=== PATIENT | female | born 1995 | race Caucasian/White ===

== ENCOUNTER 2017-04-29 13:15 | Emergency (ER) | payer BC ==
--- NOTE | 2017-04-29 14:14 | UC ---
Throat Pain/Nasal Blaise HPI - HPI Summary HPI Summary: Acute sinus pain, pressure, chills, and malaise starting 1-2 days ago. Pt has chronic allergies, states she gets sinus infections "all the time" but rarely takes abx for them. Thinks it has been years since her last course of abx; came in because she is feeling so bad this time. Has apt with pharmaceutical engineer on Saturday, has never had luck with treating her allergies in the past. Called her PCP but couldn't get an appointment for a week or more. Had sinus surgery x 3 while in the several years ago. Denies measured fever, trouble breathing, or facial swelling. - History of Current Complaint Chief Complaint: UCRespiratory Stated Complaint: SINUS ISSUE FEVER Time Seen by Provider: 04/29/17 13:46 Hx Obtained From: Patient Hx Last Menstrual Period: DEPO ?: No Onset/Duration: Gradual Onset, Lasting Days Cough: Nonproductive - throat-clearing Associated Signs & Symptoms: Positive: Sinus Discomfort, Nasal Discharge - Allergies/Home Medications Allergies/Adverse Reactions: Allergies Allergy/AdvReac Type Severity Reaction Status Date / Time No Known Allergies Allergy Verified 04/29/17 13:23 Home Medications: Home Medications DULoxetine DR CAP* [Cymbalta CAP*] 60 mg PO DAILY 04/29/17 [History Confirmed ] Vitamin D CAP* [Drisdol CAP*] 50,000 units PO WEEKLY 04/29/17 [History Confirmed 04/29/17] PMH/Surg Hx/FS Hx/Imm Hx - Additional Past Medical History Additional PMH: seasonal allergies - Surgical History Surgical History: Yes - "laser sinus surgery x 3, 3-5 years ago" - Family History Known Family History: Positive: Hypertension - Social History Occupation: Employed Full-time Alcohol Use: None Substance Use Type: None Smoking Status (MU): Former Smoker Review of Systems Constitutional: Chills, Fatigue Skin: Negative Eyes: Negative ENT: Nasal Discharge Respiratory: Cough Cardiovascular: Negative Gastrointestinal: Negative Genitourinary: Negative Motor: Negative Neurovascular: Negative Musculoskeletal: Negative Neurological: Negative Psychological: Negative All Other Systems Reviewed And Are Negative: Yes Physical Exam Triage Information Reviewed: Yes Appearance: Well-Appearing, No Pain Distress, Obese Vital Signs: Initial Vital Signs Temp 98.0 F 04/29/17 13:19 Pulse 75 04/29/17 13:19 Resp 16 04/29/17 13:19 BP 105/56 04/29/17 13:19 Pulse Ox 100 04/29/17 13:19 Vital Signs Reviewed: Yes Eye Exam: Normal Eyes: Positive: Conjunctiva Clear ENT: Positive: Hearing grossly normal, Pharynx normal, Nasal congestion, Other: - diffuse sinus tenderness Dental Exam: Normal Neck exam: Normal Neck: Positive: Supple, Nontender, No Lymphadenopathy Respiratory Exam: Normal Respiratory: Positive: Chest non-tender, Lungs clear, Normal breath sounds, No respiratory distress, No accessory muscle use Cardiovascular Exam: Normal Cardiovascular: Positive: RRR, No Murmur Musculoskeletal Exam: Normal Neurological Exam: Normal Neurological: Positive: Alert Psychological Exam: Normal Skin Exam: Normal Throat Pain/Nasal Course/Dx - Differential Dx/Diagnosis Provider Diagnoses: acute bacterial rhinosinusitis. allergic rhinitis Discharge - Discharge Plan Condition: Stable Disposition: HOME Prescriptions: Amoxicillin/Clavulanate TAB* [Augmentin TAB 875*] 875 mg PO BID #14 tab Patient Education Materials: Rhinosinusitis (ED) Additional Instructions: Please follow up with your pharmaceutical engineer as planned; see your primary care provider if you have new or worsening symptoms in the mean time. You can come back here if you have severe or worrisome symptoms.
== END 2017-04-29 14:00 | disposition home or self-care (01) ==
LOC: UCEAST 13:15
DX: J01.90 Acute sinusitis, unspecified (principal); B96.89 Other specified bacterial agents as the cause of diseases classified elsewhere; J30.9 Allergic rhinitis, unspecified; Z87.891 Personal history of nicotine dependence
CPT/HCPCS: 99202; G0463

== ENCOUNTER 2018-06-03 06:17 | Day surgery (SDC) | payer BC ==
[~2018-06-03 06:17] MED LIST: Buffered Lidocaine 0.9% SYRIN* 5 ML/SYR SYRINGE INTRADERM ONE; Famotidine IV* 10 MG/ML 2 ML (20 mg) IV ONE
[2018-06-03] MEDS ORDERED: Ondansetron INJ* 2 MG/ML VIAL ONE ×2 (06:34→07:12)
[2018-06-03] MEDS ORDERED: Dexamethasone IV* 4 MG/ML 1 ML (4 MG) ONE (06:34)
[2018-06-03] MEDS ORDERED: Famotidine IV* 10 MG/ML 2 ML (20 mg) ONE (06:34)
[2018-06-03] MEDS ORDERED: ceFAZolin 2 GM PREMIX (*) 2 GM/50 ML BAG IVPB ONE (06:35)
[2018-06-03] MEDS ORDERED: Scopolamine 1.5 mg* PATCH ONE (06:35)
[2018-06-03] MEDS ORDERED: Propofol* 10 MG/ML 20 ML BTL IV PUSH ONE (07:12)
[2018-06-03] MEDS ORDERED: fentaNYL* 50 MCG/ML 2 ML VIAL (100 MCG VIAL) ONE ×4 (07:12→12:59)
[2018-06-03] MEDS ORDERED: KETAMINE HCL* 50 MG/ML 10 ML VIAL ONE (07:12)
[2018-06-03] MEDS ORDERED: Propofol* 500 MG/50 ML BTL ONE (07:12)
[2018-06-03] MEDS ORDERED: Midazolam* 1 MG/ML 5 ML VIAL (5 MG) ONE (07:12)
[2018-06-03] MEDS ORDERED: Lidocaine 2% PF * 5 ML VIAL ONE (07:12)
[2018-06-03] MEDS ORDERED: Lidocain 1% EPI 1:100,000 * 30 ML MDV ONE (07:16)
[2018-06-03] MEDS ORDERED: Bupivacaine 0.25% SDV PF* 10 ML VIAL INJ ONE (07:16)
[2018-06-03] MEDS ORDERED: EPHEDrine (Pressors)* 50 MG/ML VIAL ONE (08:30)
[2018-06-03] MEDS ORDERED: Naloxone* 0.4 MG/ML 1 ML VIAL IV PRN (09:37)
[2018-06-03] MEDS ORDERED: PROCHLORPERAZINE INJ 5 MG/ML 2 ML VIAL IV PRN (09:37)
[2018-06-03] MEDS ORDERED: oxyCODONE/Acetamin 5/325 MG* TAB PO PRN (09:37)
[2018-06-03] MEDS ORDERED: DiMENhydriNATE IV* 50 MG/ML VIAL IV PUSH PRN (09:37)
[2018-06-03] MEDS ORDERED: fentaNYL* 50 MCG/ML 2 ML VIAL (100 MCG VIAL) IV PRN (09:37)
[2018-06-03] MEDS ORDERED: HYDROmorphone INJ* 0.5 MG/0.5 ML SYRINGE ONE ×2 (11:26→11:27)
[2018-06-03] MEDS ORDERED: Acetaminophen TAB* 325 MG ONE (13:09)
[2018-06-03 13:16] VITALS: BP 113/74
== END 2018-06-03 13:32 | disposition home or self-care (01) ==
LOC: OR 06:17
PROVIDERS: ATTEND Plastic Surgery
DX: N62 Hypertrophy of breast (principal); M54.9 Dorsalgia, unspecified; M54.2 Cervicalgia; Z87.891 Personal history of nicotine dependence; F41.8 Other specified anxiety disorders; J30.89 Other allergic rhinitis
CPT/HCPCS: 81025; 88305; A9270-GY; A9272; J0690; J1100; J1170; J2250; J2405; J2704; J3010; J3490

== ENCOUNTER → 2018-11-19 09:33 | Day surgery (SDC) | payer BC ==
[~2018-11-19 09:33] MED LIST changes: +Acetaminophen TAB* 325 MG ONE; +Acetaminophen TAB* 325 MG PO ONE; +Acetaminophen TAB* 325 MG PO PRN; +Dexamethasone IV* 4 MG/ML 1 ML (4 MG) ONE; +DiMENhydriNATE IV* 50 MG/ML VIAL IV PUSH PRN; -Famotidine IV* 10 MG/ML 2 ML (20 mg) IV ONE; +Famotidine IV* 10 MG/ML 2 ML (20 mg) ONE; +HYDROcodone/ACET. 7.5/325 LIQ* 15 ML UDC ONE; +HYDROcodone/ACETAMIN 5-325 MG* 1 TAB PO PRN; +HYDROmorphone INJ1* 1 MG/ML SYRINGE IV PRN; +Lactated Ringers 1000 ML Bag* 1,000 ML IV SCH; +Levalbuterol 0.63MG/3ML NEB* UNIT OF USE INH PRN; +Midazolam* 1 MG/ML 2 ML VIAL (2 MG) ONE; +Naloxone* 0.4 MG/ML 1 ML VIAL IV PRN; +Ondansetron INJ* 2 MG/ML VIAL IV PRN; +Ondansetron INJ* 2 MG/ML VIAL ONE; +PROCHLORPERAZINE INJ 5 MG/ML 2 ML VIAL IV PRN; +Propofol* 10 MG/ML 20 ML BTL ONE; +Scopolamine 1.5 mg* PATCH TRANSDERM PRN; +Scopolamine PATCH Remove* 1 NOTE MISC PATCH OFF ONE; +Succinylcholine* 20 MG/ML 10 ML VIAL ONE; +diPHENhydraMINE IV* 50 MG/ML 1 ml VIAL (BENADRYL) IV PRN; +fentaNYL* 50 MCG/ML 2 ML VIAL (100 MCG VIAL) IV PRN; +fentaNYL* 50 MCG/ML 2 ML VIAL (100 MCG VIAL) ONE
[2018-11-19 13:03] VITALS: BP 126/76
--- NOTE | 2018-11-19 16:20 | OP ---
DATE OF OPERATION: 11/19/18 - SDS DATE OF : [birth year] SURGEON: Juan Pablo Bliss MD PRE-OP DIAGNOSIS: Chronic tonsillitis, hypertrophied tonsils. POST-OP DIAGNOSIS: Chronic tonsillitis, hypertrophied tonsils. OPERATIVE PROCEDURE: Tonsillectomy. BRIEF HISTORY: This pleasant 23-year-old female with chronic recurrent tonsillitis, elected for surgical management. DESCRIPTION OF PROCEDURE: The patient was taken to the operating room. General anesthetic was given. The patient was intubated. Tongue, mandible, and soft palate were retracted. Coblator was used to remove the tonsils. Once hemostasis was obtained, the patient was awakened and sent to the recovery room in stable condition. Instrument and sponge counts were correct. Blood loss minimal. [id number]/CPS #: [id number] MTDD
== END | disposition home or self-care (01) ==
LOC: OR 09:33
PROVIDERS: ATTEND Otolaryngology
DX: J35.01 Chronic tonsillitis (principal); Z87.891 Personal history of nicotine dependence; J34.2 Deviated nasal septum; J32.9 Chronic sinusitis, unspecified; J34.3 Hypertrophy of nasal turbinates; J31.0 Chronic rhinitis
CPT/HCPCS: 81025; 88304; A9270-GY; J0330; J1100; J2250; J2405; J2704; J3010

== ENCOUNTER 2019-12-24 09:18 | Emergency (ER) | payer BC ==
--- OUTSIDE RECORDS SUMMARY | 2019-12-24 09:34 | XMS REPORT | Summary of Care ---
:1995 Author Organization [facility] Address [address] [facility] [place] [address] Care Team Providers Name Role Phone Deborah Kramer Primary Care Provider Unavailable Reason for Visit Reason Comments Other paperwork completion Encounter Details Date Type Department Care Team Description 11/17/2019 Office Visit Mahendra Bowman, Routine general medical Medicine TEOFILO Hughes examination at [facility] [address] (Primary [place], [place] [id number] [place] [address] Dx) [phone] [id number] Allergies Active Allergy Reactions Severity Noted Date Comments Environmental ACUTE CARE OCCUPATIONAL THERAPIST Reaction 01/31/2017 Lactose Intolerance GI Reaction 01/31/2017 Latex Dermatologic Reaction 04/28/2018 Metals Dermatologic Reaction 01/31/2017 documented as of this encounter (statuses as of 11/17/2019) Medications Medication Sig Dispensed Refills Start Date End Date Status saline (OCEAN NASAL [place] 1 [place] in 2 Each 0 07/29/2019 Active SPRAY) 0.65 % Nasal nose THREE TIMES SolutionIndications: DAILY NEEDED Acute URI (nasal congestion). Use to irrigate fluticasone (FLONASE) [place] 2 Sprays in 1 Bottle 0 07/29/2019 Active 50 MCG/ACT Nasal nose DAILY. SuspensionIndications : Acute URI albuterol HFA Take 2 Puffs by 1 Inhaler 0 07/29/2019 Active (VENTOLIN) 108 (90 inhalation EVERY Base) MCG/ACT FOUR HOURS Inhalation Aero NEEDED (cough). SolnIndications: Acute URI documented as of this encounter (statuses as of 11/17/2019) Active Problems No known active problemsdocumented as of this encounter (statuses as of 2018) Social History Tobacco Use Types Packs/Day Years Used Date Former Smoker Cigarettes 0.15 2 Smokeless Tobacco: Never Used Alcohol Use Drinks/Week oz/Week Comments Yes seldom Alcohol Habits Answer Date Recorded How often do you have a drink containing alcohol? Monthly or less 05/26/2019 How many drinks containing alcohol do you have on a Not asked typical day when you are drinking? How often do you have six or more drinks on one Not asked occasion? Sex Assigned at Date Recorded Not on file Job Start Date Occupation Industry Not on file Not on file Not on file Travel History Travel Start Travel End No recent travel history available. 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 Review of Systems Constitutional: Negative for chills, fever and weight loss. HENT: Negative. Eyes: Negative. Respiratory: Negative for shortness of breath and wheezing. Cardiovascular: Negative for chest pain, palpitations and leg swelling. Gastrointestinal: Negative for diarrhea, nausea and vomiting. Musculoskeletal: Negative. Skin: Negative for rash. Neurological: Negative for dizziness and headaches. Allergies Allergen Reactions Environmental ACUTE CARE OCCUPATIONAL THERAPIST Reaction Lactose Intolerance GI Reaction Latex Dermatologic Reaction Metals Dermatologic Reaction No outpatient medications have been marked as taking for the 11/17/19 encounter (Office Visit) with Ellen Bowman NP. Social History Tobacco Use Smoking status: Former Smoker Packs/day: 0.15 Years: 2.00 Pack years: 0.30 Types: Cigarettes Smokeless tobacco: Never Used Substance Use Topics Alcohol use: Yes Frequency: Monthly or less Comment: seldom Drug use: No OBJECTIVE: BP 118/78 | Pulse 104 | Ht 5' 6" (1.676 m) | Wt 263 lb (119.3 kg) | SpO2 99 % | BMI 42.45 kg/m Physical Exam Constitutional: She is well-developed, well-nourished, and in no distress. HENT: Head: Normocephalic and atraumatic. Eyes: Pupils are equal, round, and reactive to light. EOM are normal. Neck: Normal range of motion. Neck supple. Cardiovascular: Normal rate and regular rhythm. Pulmonary/Chest: Effort normal and breath sounds normal. No respiratory distress. Abdominal: Soft. Bowel sounds are normal. She exhibits no distension. There is no abdominal tenderness. Musculoskeletal: General: No edema. Neurological: She is alert. She has normal motor skills, normal strength and intact cranial nerves. Gait normal. Skin: Skin is warm and dry. Psychiatric: Mood and affect normal. Vitals reviewed. ASSESSMENT:/PLAN: ICD-9-CM ICD-10-CM 1. 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 Ellen Bowman NP 11/17/2019 16:38 documented in this encounter Plan of Treatment Health Maintenance Due Date Last Done Comments DTaP/Tdap/Td Vaccines (1 - 2004 Tdap) INFLUENZA VACCINE (#1) 2019 PAP SMEAR 03/07/2020 03/07/2017, 03/07/2017 DEPRESSION SCREENING 05/26/2020 05/26/2019, 01/31/2017 HPV IMMUNIZATION SERIES (1 - 11/17/2020 Postponed from 2004 Female 2-dose series) (Patient refused) HIV SCREENING Completed 03/07/2017 HEPATITIS A IMMUNIZATION Aged Out No longer eligible based SERIES on patient's age to complete this topic MENINGOCOCCAL VACCINE IMM Aged Out No longer eligible based on patient's age to complete this topic PNEUMOCOCCAL 0-64 YRS Aged Out No longer eligible based on patient's age to complete this topic documented as of this encounter Goals Goal Patient Goal Associated Recent Patient-Stated? Author Type Problems Progress Depression Depression 8 (01/31/2017 No Nia screen (PHQ-9) 2:00 PM EDT) Deborah, total score < 5 [place] Note: This is an individualized treatment (depression) goal for Dianelys Poe: Displayed above is your goal for a depression screening (PHQ-9) score that would indicate good control of your depression. Keep a regular sleep schedule Lifestyle No Deborah Kramer FNP Note: This is an individualized lifestyle goal for Dianelys Poe: Please maintain a regular sleep schedule. This may help with some symptoms of depression. Take all prescribed medications as Self-management No Deborah Kramer FNP directed Note: This is an individualized self-management goal for Dianelys Poe: Please take all prescribed medications as directed. 1. Do not skip doses. If you cannot afford your medications, talk with your doctor. 2. Use a pill reminder system such as a pill box if needed. Your pharmacist can help you with this. 3. Contact your Pharmacy 5 days before your medication runs out. If you cannot take your medications for any reasons, talk with your doctor. 4. Please bring all of your medication bottles and inhalers (or a list of all your medications/inhalers) with you to every visit. Potential barriers to meeting all of your care plan goals will continue to be addressed on an ongoing basis. documented as of this encounter Results Not on filedocumented in this encounter Visit Diagnoses Diagnosis Routine general medical examination at a health care facility documented in this encounter Insurance Payer Benefit Plan / Subscriber ID Effective Dates Phone Address Type Group DEBRA JOHN xxxxxxxxxxxx 2017-Present Debra CHU documented as of this encounter
--- NOTE | 2019-12-24 09:43 | ED ---
Respiratory - HPI Summary HPI Summary: Pt. is a 24 y.o female who presents to the ER for chills, productive cough, and nasal congestion x 3 days. Pt. notes hx of exercise/allergy induced asthma. Pt. notes she has been using her ventolin inhaler more frequently. Sxs are mild in severity. No current modifying factors. - History of Current Complaint Chief Complaint: EDShortnessOfBreath Stated Complaint: SOB/CONGESTED PER PT Time Seen by Provider: 12/24/19 09:33 Hx Obtained From: Patient Pain Intensity: 0 - Allergy/Home Medications Allergies/Adverse Reactions: Allergies Allergy/AdvReac Type Severity Reaction Status Date / Time adhesive tape Allergy Severe Blisters Verified 12/24/19 09:28 latex Allergy Severe ECZEMA Verified 12/24/19 09:28 ENVIRONMENTAL Allergy Severe CONGESTION, Uncoded 12/24/19 09:28 EARS AND THROAT METALS Allergy Severe ECZEMA Uncoded 12/24/19 09:28 Home Medications: Home Medications D-Methorphan/PE/Acetaminophen [Vicks Dayquil Liquid] 30 ml DIALYSIS DAILY PRN [History Confirmed 12/24/19] PMH/Surg Hx/FS Hx/Imm Hx Previously Healthy: Yes Respiratory History: Reports: Hx Asthma - ALLERGY AND EXERCISE INDUCED GI History: Reports: Hx Gastroesophageal Reflux Disease - DIET CONTROLLED History: Reports: Hx Kidney Stones - hx of in past Musculoskeletal History: Denies: Hx Scoliosis Sensory History: Reports: Hx Contacts or Glasses - GLASSES Denies: Hx Hearing Aid Opthamlomology History: Reports: Hx Contacts or Glasses - GLASSES Neurological History: Denies: Hx Headaches, Other Neuro Impairments/Disorders Psychiatric History: Reports: Hx Anxiety - HX OF IN THE PAST, Hx Depression - HX OF IN THE PAST - Cancer History Hx Chemotherapy: No - Surgical History Surgery Procedure, Year, and Place: WISDOM TEETH-2010 &2012. bilat breast reduction 05/2018 Hx Anesthesia Reactions: No - Immunization History Date of Influenza Vaccine: 2019 Immunizations Up to Date: Yes Infectious Disease History: No Infectious Disease History: Denies: Traveled Outside the [place] in Last 30 Days - Family History Known Family History: Positive: Hypertension, Non-Contributory - Social History Occupation: Employed Full-time Lives: With Family Alcohol Use: None Substance Use Type: Reports: None Smoking Status (MU): Former Smoker Amount Used/How Often: 2 PACKS PER WEEK X 2 YEARS Have You Smoked in the Last Year: No Review of Systems Constitutional: Negative Negative: Fever Eyes: Negative ENT: Negative Cardiovascular: Negative Respiratory: Negative Gastrointestinal: Negative Genitourinary: Negative Negative: dysuria Positive: Other - lower and upper back pain Positive: Headache All Other Systems Reviewed And Are Negative: Yes Physical Exam Triage Information Reviewed: Yes Vital Signs On Initial Exam: Initial Vitals Temp Pulse Resp BP Pulse Ox 96.9 F 97 18 147/103 99 12/24/19 09:25 12/24/19 09:25 12/24/19 09:25 12/24/19 09:25 12/24/19 09:25 Vital Signs Reviewed: Yes Appearance: Positive: Well-Appearing - Pt. sitting up in bed in NAD. Skin: Positive: Warm, Dry Head/Face: Positive: Normal Head/Face Inspection Eyes: Positive: Normal, EOMI, MIKE ENT: Positive: TMs normal Neck: Positive: Supple Respiratory/Lung Sounds: Positive: Clear to Auscultation, Breath Sounds Present. Negative: Rales, Rhonchi, Wheezes Cardiovascular: Positive: Normal, RRR Neurological: Positive: Normal, CN Intact II-III Psychiatric: Positive: Affect/Mood Appropriate Procedures - Sedation Patient Received Moderate/Deep Sedation with Procedure: No Diagnostics - Vital Signs Vital Signs Temp Pulse Resp BP Pulse Ox 12/24/19 09:25 96.9 F 97 18 147/103 99 - Laboratory Lab Statement: Any lab studies that have been ordered have been reviewed, and results considered in the medical decision making process. Disposition - Course Course Of Treatment: Pt. presenting with productive cough and increase in wheeze. Exam in ER is unremarkable. Pt. concerned for potential pneumonia. CXR negative per radiology. Positive flu b. Outside of window for tamiflu. WIll dc home. WIll f.u with pcp if sxs persist. Can continue inhaler as directed. To increased fluids and rest. Will return to er if sxs change or worsen. - Differential Dx - Cardiopulmonary Differential Diagnoses - Cardiopulmonary: Bronchitis, Influenza - Diagnoses Provider Diagnoses: Influenza Discharge ED - Sign-Out/Discharge Documenting (check all that apply): Patient Departure - Discharge Plan Condition: Good Disposition: HOME Patient Education Materials: Influenza (ED) Forms: *Work Release Referrals: Deborah Norris [Primary Care Provider] - Additional Instructions: Follow up with PCP within one week if symptoms persist Increase fluids and rest Tylenol or Motrin for discomfort as directed Inhaler as needed Return to ER if symptoms change or worsen - Billing Disposition and Condition Condition: GOOD Disposition: Home - Attestation Statements Provider Attestation: pt seen by midlevel provider independently, based on their assessment, it was not necessary to present the case to me but I was available for consultation. I did not form a physician-patient relationship with the patient. The chart however, has been reviewed. am signing this note strictly in an administrative capacity.
[2019-12-24 09:58] LABS: Influenza B Molecular POSITIVE (Negative)
[2019-12-24 10:52] VITALS: BP 122/76
== END 2019-12-24 10:51 | disposition home or self-care (01) ==
LOC: ED 09:18
DX: J11.1 Influenza due to unidentified influenza virus with other respiratory manifestations (principal); R05 Cough; K21.9 Gastro-esophageal reflux disease without esophagitis; J45.909 Unspecified asthma, uncomplicated; F41.9 Anxiety disorder, unspecified; F32.9 Major depressive disorder, single episode, unspecified; Z87.442 Personal history of urinary calculi; Z87.891 Personal history of nicotine dependence; Z91.040 Latex allergy status
CPT/HCPCS: 71046; 99282